=== PATIENT | male | born 1975 | race Caucasian/White ===

== ENCOUNTER 2020-06-19 22:02 | Emergency (ER) | payer SELFPAY ==
[~2020-06-19] VITALS: Ht 180.3 cm; Wt 95.9 kg
[2020-06-19] MEDS ORDERED: LEVO200T5 PO (22:29)
--- NOTE | 2020-06-19 22:32 | NUR ---
ASSUMED CARE OF PATIENT. PATIENT REPORTS HE HAS COVID AND HAS A DRY COUGH. PT ALSO REPORTS HE HAS A PULSE OX AT HOME AND WAS GETTING IN THE 80S. PT IS 95% RA. VS STABLE. NO ACUTE DISTRESS NOTED. CALL LIGHT IN PLACE. WILL CONTINUE TO MONITOR.
--- NOTE | 2020-06-19 22:33 | NUR ---
DR LEYVA IN ROOM
--- NOTE | 2020-06-19 23:43 | NUR ---
PT RESTING IN ROOM. VS STABLE. CALL LIGHT IN PLACE. WILL CONTINUE TO MONITOR.
[2020-06-20 00:18] VITALS: BP 106/73
--- NOTE | 2020-06-20 00:18 | NUR ---
VS STABLE. NO ACUTE DISTRESS NOTED. PT DISCHARGED BY DR LEYVA.
== END 2020-06-20 00:21 | disposition home or self-care (01) ==
LOC: ED 22:58
DX: U07.1 COVID-19 (principal); J12.82 Pneumonia due to coronavirus disease 2019; R94.31 Abnormal electrocardiogram [ECG] [EKG]; F17.200 Nicotine dependence, unspecified, uncomplicated
CPT/HCPCS: 71045; 93005; 99283